=== PATIENT | male | born 1950 | race Caucasian/White ===

== ENCOUNTER 2017-01-11 22:02 | Emergency (ER) | payer MEDICARE, OTHER ==
[2017-01-11] MEDS ORDERED: KETOROLAC TROMETHAMINE 30 MG/ML VIAL IV ONE (22:11)
[2017-01-11] MEDS ORDERED: KETOROLAC TROMETHAMINE 30 MG/ML VIAL ONE (22:12)
--- NOTE | 2017-01-11 22:16 | ERNOTE ---
Abdominal HPI - Narrative Date of Service: 01/11/17 - General Chief Complaint: Abdominal Pain Source: patient - Immun/Allergies/Home Medications Allergies/Adverse Reactions: Allergies No Known Allergies Allergy (Verified 01/11/17 22:15) Home Medications: HOME MEDICATIONS Atorvastatin Calcium [Lipitor] 10 mg PO HS 04/25/13 [Last Taken Unknown] Levothyroxine Sodium [Synthroid] 25 mcg PO DAILY 04/25/13 [Last Taken Unknown] Pantoprazole Sodium [Protonix] 40 mg PO BID 04/25/13 [Last Taken Unknown] Aspirin [Aspirin Enteric Coated] 81 mg PO DAILY 02/28/16 [Last Taken Unknown] Tamsulosin HCl [Flomax] 0.4 mg PO DAILY 02/28/16 [Last Taken Unknown] Testosterone Cypionate [Depo-Testosterone] 1.5 ml IM Q28D 02/28/16 [Last Taken Unknown] metFORMIN HCL [Glucophage] 500 mg PO DAILY 02/28/16 [Last Taken Unknown] Hydromorphone HCl [Dilaudid] 2 mg PO Q4H PRN #12 tablet 02/29/16 [Last Taken Unknown] - History of Present Illness Narrative: Acute onset of lower abdominal pain while in the bathroom. The pain is crampy, does not radiate and feels similar to a previous episode of diverticulitis. There has not been any vomiting, diarrhea, fevers, or chills. No difficulty urinating. Time (Timing): 22:14 Timing: constant Quality: moderate Activities at Onset: activity Modifying Factors - (Improves): Present: other - nothing Modifying Factors - (Worsens): Present: other - nothing Associated Symptoms: Absent: back pain Prior Abdominal Problems: Present: similar symptoms Review of Systems - Review of Systems Constitutional: Present: no symptoms reported EYE: Present: no symptoms reported ENT: Present: no symptoms reported Respiratory: Present: no symptoms reported Cardiology: Present: no symptoms reported Gastrointestinal/Abdominal: Present: no symptoms reported Genitourinary: Present: no symptoms reported Musculoskeletal: Present: no symptoms reported Skin: Present: no symptoms reported Neurological: Present: no symptoms reported Endocrine: Present: no symptoms reported Hematologic/Lymphatic: Present: no symptoms reported - Patient's Past Medical History Patient History - Medical: Diabetes Type 2, Hypothyroidism, Other Patient History - Cardiac/Respiratory: Hyperlipidemia Patient History - Cancer: No Hx of Cancer Patient History - Surgical Procedures: Colonoscopy, Other Patient History - Other: None - Family History Mother Family History - Medical: , Other Family History - Cardiac/Respiratory: No pertinent hx Father Family History - Medical: No pertinent hx Family History - Cardiac/Respiratory: CVA/Stroke - Social History Living Situations: spouse Abuse History: No History of abuse Psych History: No pertinent hx Alcohol Use: occasionally Drug Use: none Physical Exam - Physical Exam General Appearance: Present: mild distress Eye Exam: Normal inspection: bilateral Ears, Nose, Throat: Present: normal ENT inspection Neck: Present: normal inspection Respiratory: Present: no respiratory distress Cardiovascular/Chest: Present: regular rate, rhythm Gastrointestinal/Abdominal: Present: nontender, no organomegaly Back Exam: Present: normal inspection Extremity Exam: Present: normal inspection Neurological Exam: Present: alert, oriented, normal mood/affect Skin Exam: Present: normal color, warm/dry ED Progress - Results and Orders Patient's Lab Results:: I have reviewed the patient's lab results. - Vital Signs Patient's Vital Signs:: I have reviewed the patient's vital signs. - CT/Ultrasound CT/Ultrasound Narrative: Diverticulosis but not diverticulitis. - Progress/Reassessment Progress:: Improved Progress Note-Subjective: 01/11/17 22:16 The patient was given Torodol 30 mg IV. 01/11/17 23:40 No pain free. Departure - Departure Clinical Impression: Abdominal pain Disposition: Home self-care Condition: Good Instructions: Abdominal Pain, Adult, [id number] Language: Colombian Referrals: Osiel Christian MD [Primary Care Provider] -
[2017-01-11 22:24] LABS: Hematocrit 41.2 % (42.0-52.0); Hemoglobin 13.1 gm/dL (13.5-18.0); Mean Corpuscular Hemoglobin 25.4 pg (27-31); Mean Corpuscular Hgb Conc 31.8 g/dl (32-36); Mean Platelet Volume 9.1 fl (6.0-9.5); Neutrophil # 3.1 K/mm3 (1.3-6.0); Neutrophil % 52.7 % (42-75.0); Platelet Count 294 K/mm3 (150-450); Red Blood Count 5.15 M/mm3 (4.7-6.0); Red Cell Distribution Width 15.4 % (11.5-14.0); White Blood Count 5.9 K/mm3 (4.0-10.5)
[2017-01-11 22:39] LABS: Albumin * 3.6 gm/dl (3.4-5.0); Bilirubin, Total 0.3 mg/dL (0.0-1.1); Ca. Corrected For Albumin 8.8 mg/dL (8.4-10.2); Calcium * 8.8 mg/dL (7.9-10.9)
[2017-01-11] MEDS ORDERED: MAGNESIUM CITRATE 300 ML BTL PO ONE (23:39)
[2017-01-11] MEDS ORDERED: MAGNESIUM CITRATE 300 ML BTL ONE (23:45)
[2017-01-12 00:28] VITALS: BP 153/83
== END 2017-01-12 00:03 | disposition home or self-care (01) ==
LOC: ER 22:02
DX: R10.30 Lower abdominal pain, unspecified (principal)